=== PATIENT | female | born 1950 | race Caucasian/White ===

== ENCOUNTER 2021-09-06 13:33 | Day surgery (SDC) | payer MEDICARE ==
[2021-09-06] MEDS ORDERED: Sodium Chloride 0.9% 10 ML FLUSH Syringe IJ ONE (13:34)
[2021-09-06] MEDS ORDERED: Depo-Medrol 40 MG/ML IM ONE (13:34)
[2021-09-06] MEDS ORDERED: Xylocaine 1% Vial 30 ML PF IJ ONE (13:34)
[2021-09-06] MEDS ORDERED: Lactated Ringers 1,000 ML IV ONE (14:31)
[2021-09-06] MEDS ORDERED: DIPRIVAN 200 MG/20 ML IV ONE (16:16)
--- NOTE | 2021-09-06 17:28 | XRAY ---
Indication: Lumbar DEYA. Intraoperative fluoroscopy provided for 24 seconds. 2 digital spot image submitted for interpretation demonstrates posterior needle tip projecting midline posterior to the lumbosacral interspace. Small amount of contrast injected for needle tip placement. Correlate with intraoperative findings/report.
--- NOTE | 2021-09-08 09:57 | XRAY ---
24 seconds fluoroscopy time in surgery for lumbar DEYA.
== END 2021-09-06 16:45 | disposition home or self-care (01) ==
LOC: SDC-PAIN 13:33
PROVIDERS: ATTEND Psychiatry & Neurology Pain Medicine
DX: M54.16 Radiculopathy, lumbar region (principal); Z79.899 Other long term (current) drug therapy
CPT/HCPCS: 62323; 72100; 77003; J1030; J2001; J2704; Q9966

== ENCOUNTER 2022-02-07 15:14 | Day surgery (SDC) | payer MEDICARE ==
[2022-02-07] MEDS ORDERED: Marcaine Mpf 0.5% Vial 30 Ml IJ ONE (15:15)
[2022-02-07] MEDS ORDERED: Depo-Medrol 40 MG/ML IM ONE (15:15)
[2022-02-07] MEDS ORDERED: Lactated Ringers 1,000 ML IV ONE (16:44)
[2022-02-07] MEDS ORDERED: DIPRIVAN 200 MG/20 ML IV ONE (17:05)
--- NOTE | 2022-02-07 20:16 | XRAY ---
Indication: Bilateral SI joint injection. Intraoperative fluoroscopy provided for 15 seconds. 4 digital spot images submitted for interpretation demonstrates posterior needle tip projecting over the inferior left and right SI joint. Correlate with intraoperative findings/report.
--- NOTE | 2022-02-08 09:44 | XRAY ---
15 seconds of fluoroscopy was used in surgery for bilateral SI joint injections.
== END 2022-02-07 17:15 | disposition home or self-care (01) ==
LOC: SDC-PAIN 15:14
PROVIDERS: ATTEND Psychiatry & Neurology Pain Medicine
DX: M46.1 Sacroiliitis, not elsewhere classified (principal); Z79.899 Other long term (current) drug therapy
CPT/HCPCS: 27096; 72202; 77002; G0260; J1030; J2704

== ENCOUNTER 2022-04-04 16:11 | Day surgery (SDC) | payer MEDICARE ==
[2022-04-04] MEDS ORDERED: Depo-Medrol 40 MG/ML IM ONE (16:12)
[2022-04-04] MEDS ORDERED: Sodium Chloride 0.9(Preservative Free) 10 ML IJ ONE (16:12)
[2022-04-04] MEDS ORDERED: Lactated Ringers 1,000 ML IV ONE (17:24)
[2022-04-04] MEDS ORDERED: DIPRIVAN 200 MG/20 ML IV ONE (17:51)
--- NOTE | 2022-04-04 19:57 | XRAY ---
Indication: Right L4-S1 transforaminal DEYA. Intraoperative fluoroscopy provided for 36 seconds. 4 digital spot image submitted for interpretation demonstrates posterior needle tips projecting over the expected right L4 and L5 nerve roots. Small amount of contrast injected for needle tip placement. Correlate with intraoperative findings/report. Incidental bilateral L4-L5 spinal fusion hardware and intervertebral spacer.
--- NOTE | 2022-04-05 08:43 | XRAY ---
36 seconds of fluoroscopy was used in surgery for a right L4-S1 transforaminal DEYA.
== END 2022-04-04 18:20 | disposition home or self-care (01) ==
LOC: SDC-PAIN 16:11
PROVIDERS: ATTEND Psychiatry & Neurology Pain Medicine
DX: M54.16 Radiculopathy, lumbar region (principal); Z79.899 Other long term (current) drug therapy
CPT/HCPCS: 64483; 64484; 72100; 77003; J1030; J2704; Q9966

== ENCOUNTER 2022-12-05 13:21 | Day surgery (SDC) | payer MEDICARE ==
[2022-12-05] MEDS ORDERED: Sodium Chloride 0.9(Preservative Free) 10 ML IJ ONE (13:22)
[2022-12-05] MEDS ORDERED: Depo-Medrol 40 MG/ML IM ONE (13:22)
[2022-12-05] MEDS ORDERED: DIPRIVAN 200 MG/20 ML IV ONE (15:49)
--- NOTE | 2022-12-05 16:54 | XRAY ---
Indication: Right L4-S1 transforaminal DEYA. Intraoperative fluoroscopy provided for 32 seconds. 5 digital spot image submitted for interpretation demonstrates posterior needle tips projecting over the expected right L4 and L5 nerve roots. Small amount of contrast injected for needle tip placement. Correlate with intraoperative findings/report. Incidental bilateral L4-L5 spinal fusion hardware and intervertebral spacer.
--- NOTE | 2022-12-05 17:20 | XRAY ---
32 seconds of fluoroscopy was used in surgery for a right L4-S1 transforaminal DEYA.
[2022-12-05] MEDS ORDERED: Lactated Ringers 1,000 ML IV ONE (17:42)
== END 2022-12-05 16:20 | disposition home or self-care (01) ==
LOC: SDC-PAIN 13:21
PROVIDERS: ATTEND Psychiatry & Neurology Pain Medicine
DX: M54.16 Radiculopathy, lumbar region (principal); Z79.899 Other long term (current) drug therapy
CPT/HCPCS: 64483; 64484; 72100; 77003; J1030; J2704; Q9966

== ENCOUNTER 2023-01-30 15:56 | Day surgery (SDC) | payer MEDICARE ==
[2023-01-30] MEDS ORDERED: Depo-Medrol 40 MG/ML IM ONE (15:57)
[2023-01-30] MEDS ORDERED: BUPIVACAINE 0.5% VIAL IJ ONE (15:57)
[2023-01-30] MEDS ORDERED: DIPRIVAN 200 MG/20 ML IV ONE (16:45)
[2023-01-30] MEDS ORDERED: Lactated Ringers 1,000 ML IV ONE (17:11)
--- NOTE | 2023-01-30 20:13 | XRAY ---
Indication: Bilateral SI joint injection. Intraoperative fluoroscopy provided for 17 seconds. 4 digital spot images submitted for interpretation demonstrates posterior needle tip projecting over the left and right SI joint. Correlate with intraoperative findings/report.
--- NOTE | 2023-01-31 12:16 | XRAY ---
17 seconds of fluoroscopy was used in surgery for a bilateral sacroiliac joint injection.
== END 2023-01-30 17:15 | disposition home or self-care (01) ==
LOC: SDC-PAIN 15:56
PROVIDERS: ATTEND Psychiatry & Neurology Pain Medicine
DX: M46.1 Sacroiliitis, not elsewhere classified (principal); Z79.899 Other long term (current) drug therapy
CPT/HCPCS: 01992; 27096; 72202; 77002; 99100; G0260; J1030; J2704

== ENCOUNTER 2023-03-07 07:26 | Day surgery (SDC) | payer MEDICARE ==
[2023-03-07] MEDS ORDERED: BUPIVACAINE 0.5% VIAL IJ ONE (07:27)
[2023-03-07] MEDS ORDERED: Depo-Medrol 40 MG/ML IM ONE (07:27)
[2023-03-07] MEDS ORDERED: DIPRIVAN 200 MG/20 ML IV ONE (08:33)
[2023-03-07] MEDS ORDERED: Lactated Ringers 1,000 ML IV ONE (08:55)
--- NOTE | 2023-03-07 09:53 | XRAY ---
Indication: Right hip and greater trochanter bursa injection. Intraoperative fluoroscopy provided for 25 seconds. 2 digital spot images submitted for interpretation demonstrates needle tip projecting lateral to right femur neck. Second needle tip lateral to greater trochanter. Small amount of contrast injected for both needle tip placement. Correlate with intraoperative findings/report.
--- NOTE | 2023-03-07 10:02 | XRAY ---
25 seconds of fluoroscopy was used in surgery for a right intra-articular hip and greater trochanteric bursa injection.
== END 2023-03-07 09:00 | disposition home or self-care (01) ==
LOC: SDC-PAIN 07:26
PROVIDERS: ATTEND Psychiatry & Neurology Pain Medicine
DX: M16.11 Unilateral primary osteoarthritis, right hip (principal); M70.61 Trochanteric bursitis, right hip; Z79.899 Other long term (current) drug therapy
CPT/HCPCS: 20610; 73502; 77002; J1030; J2704; Q9966

== ENCOUNTER 2023-05-22 15:53 | Day surgery (SDC) | payer MEDICARE ==
[2023-05-22] MEDS ORDERED: Sodium Chloride 0.9(Preservative Free) 10 ML IJ ONE (15:54)
[2023-05-22] MEDS ORDERED: Depo-Medrol 40 MG/ML IM ONE (15:54)
[2023-05-22] MEDS ORDERED: DIPRIVAN 200 MG/20 ML IV ONE (18:20)
[2023-05-22] MEDS ORDERED: Lactated Ringers 1,000 ML IV ONE (19:08)
--- NOTE | 2023-05-22 20:55 | XRAY ---
Indication: Right L4-S1 transforaminal DEYA. Intraoperative fluoroscopy provided for 33 seconds. 5 digital spot image submitted for interpretation demonstrates posterior needle tips projecting over the expected right L4 and L5 nerve roots. Small amount of contrast injected for needle tip placement. Correlate with intraoperative findings/report. Incidental bilateral L4-L5 fusion hardware.
--- NOTE | 2023-05-22 21:00 | XRAY ---
33 seconds of fluoroscopy was used in surgery for a right L4-S1 transforaminal DEYA.
== END 2023-05-22 18:45 | disposition home or self-care (01) ==
LOC: SDC-PAIN 15:53
PROVIDERS: ATTEND Psychiatry & Neurology Pain Medicine
DX: M54.16 Radiculopathy, lumbar region (principal); Z79.899 Other long term (current) drug therapy
CPT/HCPCS: 64483; 64484; 72100; 77003; J1030; J2704; Q9966

== ENCOUNTER 2023-06-27 09:24 | Day surgery (SDC) | payer MEDICARE ==
[2023-06-27] MEDS ORDERED: LIDOCAINE HCL 2% 100 MG/5 ML IJ ONE (09:25)
[2023-06-27] MEDS ORDERED: DIPRIVAN 200 MG/20 ML IV ONE (11:19)
--- NOTE | 2023-06-27 13:34 | XRAY ---
Indication: Bilateral L4-S1 MBB. Intraoperative fluoroscopy provided for 47 seconds. 3 digital spot images submitted for interpretation demonstrates posterior needle tips projecting over the expected left and right L4-S1 nerve roots. Correlate with intraoperative findings/report. Incidental L4-L5 fusion hardware.
--- NOTE | 2023-06-27 14:30 | XRAY ---
47 seconds of fluoroscopy was used in surgery for a bilateral L4-S1 MBB.
[2023-06-27] MEDS ORDERED: Lactated Ringers 1,000 ML IV ONE (16:20)
== END 2023-06-27 11:51 | disposition home or self-care (01) ==
LOC: SDC-PAIN 09:24
PROVIDERS: ATTEND Psychiatry & Neurology Pain Medicine
DX: M47.816 Spondylosis without myelopathy or radiculopathy, lumbar region (principal); Z79.899 Other long term (current) drug therapy
CPT/HCPCS: 64493; 64494; 72020; 77002; J2704

== ENCOUNTER 2023-10-09 13:55 | Day surgery (SDC) | payer MEDICARE ==
[2023-10-09] MEDS ORDERED: BUPIVACAINE 0.5% VIAL IJ ONE (13:56)
[2023-10-09] MEDS ORDERED: Depo-Medrol 40 MG/ML IM ONE (13:56)
[2023-10-09] MEDS ORDERED: DIPRIVAN 200 MG/20 ML IV ONE (15:31)
[2023-10-09] MEDS ORDERED: Lactated Ringers 1,000 ML IV ONE (15:54)
--- NOTE | 2023-10-09 17:08 | XRAY ---
Indication: Left shoulder and subacromial bursa injection. Intraoperative fluoroscopy provided for 22 seconds. 2 digital spot image submitted for interpretation demonstrates needle tip projecting over the left glenohumeral joint superiorly. Second needle tip subacromial. Small amount of contrast injected for both needle tip placement. Correlate with intraoperative findings/report.
--- NOTE | 2023-10-09 18:26 | XRAY ---
22 seconds of fluoroscopy was used in surgery for a left intra-articular shoulder and subacromial bursa injection.
== END 2023-10-09 16:10 | disposition home or self-care (01) ==
LOC: SDC-PAIN 13:55
PROVIDERS: ATTEND Psychiatry & Neurology Pain Medicine
DX: M19.012 Primary osteoarthritis, left shoulder (principal)
CPT/HCPCS: 20610; 73030; 77002; J1030; J2704; Q9966

== ENCOUNTER 2024-08-12 06:43 | Day surgery (SDC) | payer MEDICARE ==
[2024-08-12] MEDS ORDERED: Sodium Chloride 0.9(Preservative Free) 10 ML IJ ONE (06:44)
[2024-08-12] MEDS ORDERED: LIDOCAINE HCL 1% AMPUL 5 ML IJ ONE (06:44)
[2024-08-12] MEDS ORDERED: CEFAZOLIN 2 GM/100 ML NaCl 2 GM/100 ML IVPB IV ONE (07:25)
[2024-08-12] MEDS ORDERED: Lactated Ringers 1,000 ML IV ONE (07:59)
[2024-08-12] MEDS ORDERED: propofoL IV ONE (08:01)
[2024-08-12] MEDS ORDERED: BACIGUENT 30 GM ONE (08:28)
--- NOTE | 2024-08-12 10:29 | XRAY ---
Indication: Spinal cord stimulator trial Intraoperative fluoroscopy provided for 56 seconds. 8 digital spot image submitted for interpretation demonstrates initial introducer needle tip posterior to L1. Single epidural lead inserted with tip projecting approximately T6-T7 level. Correlate with intraoperative findings/report.
--- NOTE | 2024-08-12 11:01 | XRAY ---
56 seconds of fluoroscopy was used in surgery for a spinal cord stimulator trial.
== END 2024-08-12 09:05 | disposition home or self-care (01) ==
LOC: SDC-PAIN 06:43
PROVIDERS: ATTEND Psychiatry & Neurology Pain Medicine
DX: M96.1 Postlaminectomy syndrome, not elsewhere classified (principal)
CPT/HCPCS: 63650; 72100; 77002; 99100; J0690; J2704; A9270-GY